=== PATIENT | female | born 1980 | race Caucasian/White ===

== ENCOUNTER 2023-03-04 08:01 | Day surgery (SDC) | payer OTHER ==
[2023-03-01 18:37] VITALS: BMI 34.9
[2023-03-04] MEDS ORDERED: TRIAMCINOLONE ACET 40MG/1ML VIAL ONE ×2 (09:20→09:40)
[2023-03-04] MEDS ORDERED: BUPIVACAINE HCL/PF 0.25% (2.5MG/ML) 10 ML VIAL ONE (09:21)
[2023-03-04] MEDS ORDERED: ALBUTEROL SO4 HFA INHALER IH ONE (09:40)
[2023-03-04] MEDS ORDERED: MIDAZOLAM HCL 2 MG/2 ML SINGLE DOSE VIAL ONE ×2 (09:40→10:12)
[2023-03-04] MEDS ORDERED: FENTANYL CITRATE/PF 50 MCG/ML VIAL ONE (09:40)
[2023-03-04] MEDS ORDERED: BUPIVACAINE HCL/PF 0.5% (5MG/ML) 10 ML VIAL ONE (09:41)
[2023-03-04] MEDS ORDERED: PROPOFOL 20 ML ONE (10:54)
[2023-03-04] MEDS ORDERED: ALBUTEROL SO4 0.083% IH SOL 2.5 MG/3 ML VIAL.NEB. NEB PRN (11:13)
[2023-03-04 15:20] VITALS: BP 124/74; PULSE 78; RESP 19; TEMP 98.5
[2023-03-05] MEDS ORDERED: FLUTICASONE/UMECLIDIN/VILANTER(100-62.5-25 TRELEGY ELLIPTA) INAHLER IH SCH (10:00)
[2023-03-05] MEDS ORDERED: PATIENT'S OWN MEDICATION (NON-FORMULARY) (Fexofenadine/Pseudoephedrine [Allegra-D 24 Hour PO SCH (10:00)
== END 2023-03-04 16:05 | disposition home or self-care (01) ==
LOC: FASU 08:01
PROVIDERS: ATTEND Orthopaedic Surgery Orthopaedic Surgery of the Spine
PROC: 0S9C3ZZ Drainage of Right Knee Joint, Percutaneous Approach (ICD-10-PCS; 2023-03-04)
PROC: 0SCC4ZZ Extirpation of Matter from Right Knee Joint, Percutaneous Endoscopic Approach (ICD-10-PCS; principal; 2023-03-04 10:45)
DX: M23.41 Loose body in knee, right knee (principal); M94.261 Chondromalacia, right knee
CPT/HCPCS: 81025; 94760